=== PATIENT | female | born 1955 | race Caucasian/White ===

== ENCOUNTER 2019-10-07 12:44 | Emergency (ER) | payer BC ==
[~2019-10-07] VITALS: Ht 167.6 cm; Wt 65.8 kg
--- NOTE | ~2019-10-07 | EMS ---
[address] [address] EMS Patient Care Report Name: AGUS PARADA Room #: PRE M.R.#: [id number] Admission: Attend Phys: Discharge: Date of : 55 Report #: [id number] THIS REPORT FOR: //name// Report Transmitted: 10/07/2019 12:28 EMS Care Summary [place], [place]/[facility] Incident [phone] @ 10/07/2019 12:15 Incident [address] [place] [address] Patient AGUS PARADA Female, 63 Years 1955 Patient Address Patient History None Reported, Patient Allergies No known allergies, Patient Medications None Reported, Chief Complaint SOA, COUGH Disposition Transported No Lights/[place] Reason Breathing Problem Transported To [facility] Narrative PT FOUND LYING ON FRONT [place]. [employer]. PT STATES SHE HAS HAD A COUGH FOR SEVERAL DAYS. PT STATES SHE HAD A KNOWN EXPOSURE TO A STAFF MEMBER WHO HAS TESTED POSITIVE FOR COVID ON SEPTEMBER 22 ON SEPTEMBER 21 AFTER MOVING A BODY AT HER PLACE OF EMPLOYMENT. PT STATES THAT SHE HAD A NEGATIVE NOSE SWAB TEST ON OCTOBER 03. PT STATES SHE HAS HAD A PROGRESSIVLY WORSENING COUGH AND SOA WITH HEADACHE AND ON AND OFF MUSCLE SORENESS SINCE SUNDAY NIGHT OCTOBER 02. PT DENIES [address] [address] EMS Patient Care Report Name: AGUS PARADA Room #: PRE M.R.#: [id number] Admission: Attend Phys: Discharge: Date of : 55 Report #: [id number] FEVER OR SORE THROAT. TRASNPORTED WITHOUT INCIDENT. Initial Vitals @12:24P: 90,R: 22,BP: 162/105,Pain: 0/10,GCS: 15,SpO2: 100,Revised Trauma: 12, Assessments @12:20MENTAL:No Abnormalities,SKIN:No Abnormalities,HEENT:Head/Face: No Abnormalities,Eyes: No Abnormalities,Neck/Airway: No Abnormalities,LUNG SOUNDS:ABDOMEN:PELVIS//GI:EXTREMITIES:PULSE:NEURO:No Abnormalities, Impression Cough Procedures @12:20ALS AssessmentResponse: UnchangedSucceeded Timeline 12:14,Call Received 12:14,Dispatch Notified 12:15,Dispatched 12:16,En Route 12:19,On Scene 12:20,At Patient 12:20,ALS Assessment,Response: UnchangedSucceeded, 12:24,BP: 162/105 M,PULSE: 90,RR: 22 R,SPO2: 100 Ox,ETCO2: ,BG: ,PAIN: 0,GCS: 15, 12:27,Depart Scene 12:39,At Destination 12:52,Call Closed Disclaimer v1.1 Copyright 2020 [employer] This EMS Care Summary contains data elements from the applicable legal record (which may be displayed differently). It is designed to provide pertinent information for the following purposes: continuity of care, clinical quality, and state data reporting. The complete legal record is available to ED staff and administrators of the receiving hospital in ES's Patient Tracker. All data is provided "as is."
[2019-10-07 13:24] LABS: ABSOLUTE NEUTROPHILS 4.1 thou/uL (1.4-8.2); BASOPHILS 0.9 % (0.0-2.0); EOSINOPHILS 2.1 % (0.0-3.0); HEMATOCRIT 43.8 % (37.0-47.0); HEMOGLOBIN 14.6 gm/dL (12.0-15.0); LYMPHOCYTES 24.6 % (24.0-44.0); MCH 32.2 pg (26.0-34.0); MCHC 33.5 g/dL (28.0-37.0); MCV 96.2 fL (80.0-100.0); MONOCYTES 6.7 % (1.0-8.0); PLATELET COUNT 326 thou/uL (150-400); POLYS 65.7 % (36.0-66.0); RBC 4.55 mil/uL (4.20-5.00); RDW 13.1 % (10.5-14.5); WBC 6.3 thou/uL (4.0-11.0)
[2019-10-07] MEDS ORDERED: FISH OIL 1,001000 M3 PO (13:25)
[2019-10-07] MEDS ORDERED: MULTI VITAMIN1 EACH PO (13:26)
[2019-10-07 13:33] LABS: ANION GAP 12 mmol/L (7-16); BUN 15 mg/dL (7-18); CALCIUM 9.3 mg/dL (8.5-10.1); CHLORIDE 104 mmol/L (98-107); CO2 25 mmol/L (21-32); CREATININE 0.8 mg/dL (0.6-1.0); GLUCOSE 132 mg/dL (74-106); POTASSIUM 3.6 mmol/L (3.5-5.1); SODIUM 141 mmol/L (136-145)
[2019-10-07 13:43] LABS: ALBUMIN 3.5 g/dL (3.4-5.0); SGOT 19 U/L (15-37); SGPT 32 U/L (30-65); TOTAL BILIRUBIN 0.3 mg/dL (<0.1-1.0); TROPONIN-I <0.06 ng/mL (<0.06)
--- NOTE | 2019-10-07 13:54 | EKG ---
[facility] [place] [address] ELECTROCARDIOGRAM REPORT Name: TALAGUS WISEMAN Room #: REG [facility]#: [id number] Admission: 10/07/19 Attend Phys: Discharge: Date of : 55 Report #: [id number] THIS REPORT FOR: cc: FAM - Family physician unknown FAM - Family physician unknown John Ngo MD ~ THIS REPORT FOR: //name// [facility] ED Test Date: 2019-10-07 Test Time: 13:14:02 Pat Name: AGUS PARADA Department: Room: Gender: F [employer]: : 1955 Requested By: Jose Rose Order Number: [id number] MD: John Ngo Measurements Intervals [place] Rate: 81 P: 27 TX: 138 QRS: 2 QRSD: 86 T: 28 QT: 361 QTc: 419 Interpretive Statements Sinus rhythm Baseline wander in lead(s) V2 No previous ECG available for comparison Electronically Signed On 10-07-2019 13:53:15 CDT by John Ngo [email or web address] <ELECTRONICALLY SIGNED> By: John Ngo MD 10/07/19 1353 1314 1314 John Ngo MD /VERO
[2019-10-07 14:23] VITALS: BP 120/74
== END 2019-10-07 15:00 | disposition home or self-care (01) ==
LOC: ER 12:44
PROVIDERS: Emergency Medicine
DX: R05 Cough (principal); R51 Headache; R06.02 Shortness of breath; Z20.828 Contact with and (suspected) exposure to other viral communicable diseases; Z90.49 Acquired absence of other specified parts of digestive tract; Z79.899 Other long term (current) drug therapy

== ENCOUNTER 2021-02-03 17:36 | Emergency (ER) | payer BC ==
[~2021-02-03] VITALS: Ht 167.6 cm; Wt 72.6 kg
[~2021-02-03 17:36] MED LIST: FISH OIL 1,001000 M3 PO; MULTI VITAMIN1 EACH PO
[2021-02-03 19:56] LABS: ABSOLUTE NEUTROPHILS 2.9 thou/uL (1.4-8.2); BASOPHILS 1.1 % (0.0-2.0); EOSINOPHILS 3.9 % (0.0-3.0); HEMATOCRIT 40.3 % (37.0-47.0); HEMOGLOBIN 13.6 gm/dL (12.0-15.0); LYMPHOCYTES 38.3 % (24.0-44.0); MCH 32.1 pg (26.0-34.0); MCHC 33.7 g/dL (28.0-37.0); MCV 95.3 fL (80.0-100.0); MONOCYTES 6.2 % (1.0-8.0); PLATELET COUNT 344 thou/uL (150-400); POLYS 50.5 % (36.0-66.0); RBC 4.23 mil/uL (4.20-5.00); WBC 5.8 thou/uL (4.0-11.0)
[2021-02-03 20:00] LABS: CALCIUM 9.5 mg/dL (8.5-10.1); CREATININE 0.9 mg/dL (0.6-1.0); POTASSIUM 4.8 mmol/L (3.5-5.1)
[2021-02-03 20:06] LABS: ALBUMIN 3.8 g/dL (3.4-5.0); TOTAL BILIRUBIN 0.2 mg/dL (0.2-1.0); TOTAL PROTEIN 6.8 g/dL (6.4-8.2)
[2021-02-03 21:25] VITALS: BP 147/62
== END 2021-02-04 05:07 | disposition home or self-care (01) ==
LOC: ER 17:36
PROVIDERS: Emergency Medicine
DX: R51.9 Headache, unspecified (principal); R22.0 Localized swelling, mass and lump, head; R20.2 Paresthesia of skin; Z90.49 Acquired absence of other specified parts of digestive tract